=== PATIENT | female | born 1960 | race Caucasian/White ===

== ENCOUNTER 2019-08-11 05:28 | Inpatient (IN) | payer SELFPAY ==
[~2019-08-11] VITALS: Ht 162.6 cm; Wt 50.1 kg
[2019-08-11 05:36] VITALS: Ht 162.6 cm; Wt 50.1 kg
[2019-08-11 05:57] LABS: BASOPHIL % 0.4 % (0-2); PLATELET COUNT 455 x10^3mcL (130-400); RED CELL DISTRIBUTION WIDTH 15.2 % (11.5-14.5)
[2019-08-11 06:10] LABS: CALCIUM 9.2 mg/dL (8.5-10.1); CARBON DIOXIDE 27.5 mmol/L (21-32); CHLORIDE SERUM 99 mmol/L (98-107); CREATININE SERUM 0.8 mg/dL (0.6-1.0); GFR1 > 60 mL/min; GLUCOSE SERUM 135 mg/dL (74-106); POTASSIUM SERUM 3.6 mmol/L (3.5-5.1); SODIUM SERUM 138 mmol/L (136-145)
[2019-08-11 06:14] LABS: ALBUMIN 3.8 g/dL (3.4-5.0); ALKALINE PHOSPHATASE 213 U/L (46-116); ALT/SGPT 58 U/L (14-59); AST/SGOT 28 U/L (15-37); BILIRUBIN TOTAL 0.2 mg/dL (0.20-1.00); LIPASE 1117 IU/L (73-393)
[2019-08-11 06:22] LABS: AMYLASE 187 U/L (25-115); TOTAL PROTEIN, SERUM 8.3 g/dL (6.4-8.2)
[2019-08-11] MEDS ORDERED: V10 PO (09:42)
[2019-08-11 11:55] LABS: microscopic required? YES; urine erythrocyte TRACE (NEGATIVE)
[2019-08-11 12:18] LABS: AMPHETAMINE QUAL UR NONE DETECTED (See below)
[2019-08-11 12:18] LABS: CHOLESTEROL/HDL RATIO 5.4
[2019-08-11 13:11] VITALS: BP 157/99
[2019-08-11 16:43] VITALS: BP 154/87
[2019-08-11 19:25] VITALS: BP 160/80
[2019-08-12 05:09] VITALS: BP 152/73
[2019-08-12 07:17] LABS: BASOPHIL % 0.5 % (0-2)
[2019-08-12 07:51] VITALS: BP 152/82
[2019-08-12 09:03] LABS: ALKALINE PHOSPHATASE 156 U/L (46-116); ALT/SGPT 40 U/L (14-59); AST/SGOT 20 U/L (15-37); BILIRUBIN TOTAL 0.21 mg/dL (0.20-1.00); CALCIUM 8.4 mg/dL (8.5-10.1); CARBON DIOXIDE 22.8 mmol/L (21-32); CHLORIDE SERUM 105 mmol/L (98-107); CREATININE SERUM 0.5 mg/dL (0.6-1.0); GFR1 > 60 mL/min; GLUCOSE SERUM 96 mg/dL (74-106); LIPASE 1341 IU/L (73-393); MAGNESIUM 1.8 mg/dL (1.8-2.4); POTASSIUM SERUM 3.5 mmol/L (3.5-5.1); SODIUM SERUM 140 mmol/L (136-145); TOTAL PROTEIN, SERUM 6.8 g/dL (6.4-8.2)
[2019-08-12 09:07] LABS: ALBUMIN 3.1 g/dL (3.4-5.0)
[2019-08-12 09:14] LABS: PLATELET COUNT 407 x10^3mcL (130-400); RED CELL DISTRIBUTION WIDTH 14.9 % (11.5-14.5)
[2019-08-12 11:50] VITALS: BP 140/78
[2019-08-12 16:31] VITALS: BP 135/61
[2019-08-12 19:20] VITALS: BP 138/71
[2019-08-12 19:25] VITALS: BP 138/70
[2019-08-13 05:21] VITALS: BP 144/78
[2019-08-13 06:43] LABS: BASOPHIL % 0.4 % (0-2); PLATELET COUNT 380 x10^3mcL (130-400)
[2019-08-13 06:59] LABS: ALKALINE PHOSPHATASE 134 U/L (46-116); ALT/SGPT 35 U/L (14-59); AST/SGOT 22 U/L (15-37); BILIRUBIN TOTAL 0.2 mg/dL (0.20-1.00); CALCIUM 8.4 mg/dL (8.5-10.1); CARBON DIOXIDE 26.3 mmol/L (21-32); CHLORIDE SERUM 103 mmol/L (98-107); CREATININE SERUM 0.6 mg/dL (0.6-1.0); GFR1 > 60 mL/min; GLUCOSE SERUM 91 mg/dL (74-106); MAGNESIUM 1.7 mg/dL (1.8-2.4); PHOSPHOROUS 3.1 mg/dL (2.5-4.9); POTASSIUM SERUM 3.4 mmol/L (3.5-5.1); SODIUM SERUM 139 mmol/L (136-145); TOTAL PROTEIN, SERUM 6.5 g/dL (6.4-8.2)
[2019-08-13 07:14] LABS: RED CELL DISTRIBUTION WIDTH 14.8 % (11.5-14.5)
[2019-08-13 07:20] LABS: ALBUMIN 2.9 g/dL (3.4-5.0); LIPASE 1581 IU/L (73-393)
[2019-08-13 08:59] VITALS: BP 154/73
[2019-08-13] MEDS ORDERED: MOT600 PO (11:44)
[2019-08-13 14:15] VITALS: BP 138/75
[2019-08-13 14:19] VITALS: BP 138/75
== END 2019-08-13 15:05 | disposition home or self-care (01) | DRG 438 ==
LOC: ED 05:28 → MU 09:35
PROVIDERS: ADMIT Internal Medicine
DX: K85.90 Acute pancreatitis without necrosis or infection, unspecified (principal); N17.0 Acute kidney failure with tubular necrosis; Z68.1 Body mass index [BMI] 19.9 or less, adult; E86.0 Dehydration; F43.9 Reaction to severe stress, unspecified; I10 Essential (primary) hypertension; D47.3 Essential (hemorrhagic) thrombocythemia; E78.5 Hyperlipidemia, unspecified; E78.1 Pure hyperglyceridemia; F17.210 Nicotine dependence, cigarettes, uncomplicated
CPT/HCPCS: G0378; J1885; J2270; J2405; J7030